=== PATIENT | male | born 1980 | race Caucasian/White ===

== ENCOUNTER 2019-06-29 11:01 | Inpatient (IN) | payer OTHER ==
[~2019-06-29] VITALS: Ht 172.7 cm; Wt 88.6 kg
[2019-06-29 11:01] VITALS: BP 122/75
[~2019-06-29 11:01] MED LIST: BACTROBAN2% T; CITALOPRAM20 MG PO; NEURONTIN PO; NEURONTIN300 MG PO; TRAZODO50 MG PO; VISTARIL50 MG PO
--- NOTE | 2019-06-29 12:14 | NUR ---
MULTIPLE ATTEMPTS AT IV START UNSUCCESSFUL BY MULTIPLE NURSES. DOC MADE AWARE.
[2019-06-29 12:20] LABS: BASO # 0.1 10*3/uL (0.0-0.1); BASO % 0.9 % (0.0-1.0); EOS # 0.4 10*3/uL (0.0-0.4); EOS % 2.8 % (1.0-4.0); HEMOGLOBIN 16.4 g/dl (14.0-18.0); LYMPH # 3.6 10*3/uL (1.3-4.4); LYMPH % 28.1 % (27.0-41.0); MEAN CORPUSCULAR HGB 28.9 pg (27.0-31.0); MEAN CORPUSCULAR HGB CONC 32.8 g/dl (33.0-37.0); MEAN PLATELET VOLUME 10.2 fl (9.6-12.3); MONO # 0.7 10*3/uL (0.1-1.0); MONO % 5.3 % (3.0-9.0); NEUT # 8.1 10*3/uL (2.3-7.9); NEUT % 62.7 % (47.0-73.0); PLATELET COUNT AUTOMATED 267 10*3/uL (130-400); RED BLOOD COUNT 5.68 10*6/uL (4.50-5.90); RED CELL DISTRI WIDTH 12.6 % (0-14.5); WHITE BLOOD COUNT 12.9 10*3/uL (4.8-10.8)
[2019-06-29 12:38] LABS: ALBUMIN 3.4 gm/dl (3.1-4.5); ALKALINE PHOSPHATASE 181 U/L (45-117); BUN 7 mg/dl (7-24); CHLORIDE 103 mmol/L (98-107); CREATININE 1.03 mg/dL (0.70-1.30); LIPASE 46 U/L (73-393); POTASSIUM 3.5 mmol/L (3.5-5.1); SGOT/AST 32 IU/L (3-35); SGPT/ALT 41 U/L (12-78); SODIUM 137 mmol/L (136-145); TOTAL PROTEIN 7.5 gm/dL (6.4-8.2)
[2019-06-29 12:41] LABS: ETHYL ALCOHOL < 3.0 mg/dl (<3)
[2019-06-29 12:50] LABS: BILIRUBIN NEGATIVE (NEGATIVE); BLOOD NEGATIVE (NEGATIVE); CLARITY SL CLOUDY (CLEAR); COLOR YELLOW (YELLOW); GLUCOSE NEGATIVE (NEGATIVE); KETONE NEGATIVE (NEGATIVE); LEUKO ESTERASE NEGATIVE (NEGATIVE); NITRITE NEGATIVE (NEGATIVE); UROBILINOGEN 0.2 E.U./dl (0.2-1.0)
--- NOTE | 2019-06-29 12:54 | NUR ---
NOTIFED BY LAB, PT LACTIC ACID OF 3.0, DR MCNAMARA AND SHANTANU RN NOTIFED.
[2019-06-29 12:56] VITALS: BP 112/81
[2019-06-29 13:03] LABS: URINE AMPHETAMINES < 1000 (1000ng/ml)
[2019-06-29 13:08] LABS: MUCOUS TRACE
[2019-06-29 13:09] LABS: URINE BARBITURATES > 200 (200ng/ml); URINE BENZODIAZEPINES > 200 (200ng/ml); URINE CANNABINOIDS (THC) > 50 (50ng/ml); URINE COCAINE < 300 (300ng/ml); URINE METHADONE < 300 (300ng/ml); URINE OPIATES > 300 (300ng/ml)
[2019-06-29 13:11] LABS: URINE PHENCYCLIDINE < 25 (25ng/ml)
--- NOTE | 2019-06-29 14:25 | NUR ---
FLUIDS AND ZOSYN STARTED PER DOC ORDERS. PT IS RESTING IN BED WITH MOTHER AT BEDSIDE. WILL CONTINUE TO MONITOR. VS STABLE.
--- NOTE | 2019-06-29 15:25 | NUR ---
MSTime: 1515 A 39 year old MALE admitted to under services of ERNESTINA BATISTA DO. Pt. arrived via ambulatory from ER. Chief complaint: OPIATE WITHDRAWAL. JOHN SWIFT.
[2019-06-29 16:00] VITALS: BP 123/77
--- NOTE | 2019-06-29 16:01 | NUR ---
PATIENT DENIES ANY HOME MEDICATIONS. PATIENT STATES HE DOES TAKE MEDICAL MARIJUANA.
--- NOTE | 2019-06-29 16:39 | NUR ---
ROUTINE SUBUTEX GIVEN AT THIS TIME. PATIENT ALSO GIVEN IV BENEDRYL, REQUIP AND ROBAXIN PER PRN ORDER FOR C/O ANXIETY, RESTLESS LEGS AND MUSCLE ACHES. WILL MONITOR EFFECTIVENESS.
--- NOTE | 2019-06-29 16:39 | NUR ---
PATIENT MEETS [facility]. PATIENT IS WANTING TO GO TO A [facility]INIC FOR HIS AFTERCARE PLAN. PATIENT WANTS TO FOLLOW UP WITH [facility] IN [place], [place]. YURI CHAPMAN B.A. COMPRESSOR ENGINEER
--- NOTE | 2019-06-29 18:14 | NUR ---
Patient resting. Responding to scheduled medications with fewer complaints of pain and anxiety.
[2019-06-29 20:00] VITALS: BP 114/57
--- NOTE | 2019-06-29 20:00 | NUR ---
Patient resting quietly with no c/o discomfort. Respirations easy and regular. Vital signs stable. No overt distress. MONICA HKALIL
--- NOTE | 2019-06-29 20:35 | NUR ---
PT COMPLAINS OF BACK PAIN 6/ PRN TYLENOL GIVEN
[2019-06-30] VITALS: BP 113/67
--- NOTE | 2019-06-30 00:54 | NUR ---
PRN ZOFRAN, ROBAXIN, BENADRYL, BENTYL GIVEN DUE TO PT COMPLAINING OF ABD PAIN, N/V, RESTLESS LEGS, ANXIETY
--- NOTE | 2019-06-30 01:54 | NUR ---
PT RESTING COMFORTABLY IN BED, NO COMPLAINTS AFTER PRN'S ADMINISTERED
--- NOTE | 2019-06-30 02:52 | NUR ---
24 HR CHART CHECK COMPLETE
--- NOTE | 2019-06-30 04:11 | NUR ---
PT ASLEEP IN BED. RESPIRATIONS EASY. NO S/S OF DISTRESS NOTED. WILL MONITOR. CALL LIGHT LEFT IN REACH.
[2019-06-30 08:00] VITALS: BP 122/75
--- NOTE | 2019-06-30 08:52 | NUR ---
PT SLEEPING. AROUSES EASILY. ROUTINE SUBUTEX GIVEN AT THIS TIME. NO VOICED COMPLAINTS. WILL MONITOR. VSS.
--- NOTE | 2019-06-30 10:18 | NUR ---
Patient displaying withdrawal symptoms, including: irritability, anxiousness, restlessness and agitation, complicated by impulsive behavior. Patient scores a 5 on the withdrawal scale. Scheduled/PRN medications provided, doctor notified of patient's agitation and AMA potential. Will continue to monitor medication effectiveness.
[2019-06-30 12:00] VITALS: BP 129/80
[2019-06-30 12:45] LABS: BASO # 0.1 10*3/uL (0.0-0.1); BASO % 0.6 % (0.0-1.0); EOS # 0.1 10*3/uL (0.0-0.4); EOS % 1.2 % (1.0-4.0); HEMOGLOBIN 16.9 g/dl (14.0-18.0); LYMPH % 17.4 % (27.0-41.0); MEAN CORPUSCULAR HGB 28.6 pg (27.0-31.0); MEAN CORPUSCULAR HGB CONC 32.5 g/dl (33.0-37.0); MEAN PLATELET VOLUME 10.5 fl (9.6-12.3); MONO # 0.4 10*3/uL (0.1-1.0); MONO % 3.6 % (3.0-9.0); NEUT % 76.9 % (47.0-73.0); PLATELET COUNT AUTOMATED 264 10*3/uL (130-400); RED BLOOD COUNT 5.91 10*6/uL (4.50-5.90); RED CELL DISTRI WIDTH 12.6 % (0-14.5); WHITE BLOOD COUNT 11.8 10*3/uL (4.8-10.8)
--- NOTE | 2019-06-30 12:56 | NUR ---
NOTIFIED REGARDING PATIENT C/O NAUSEA/VOMITING. ZOFRAN INEFFECTIVE AT THIS TIME.
[2019-06-30 13:10] LABS: BUN 3 mg/dl (7-24); CHLORIDE 108 mmol/L (98-107); CHOLESTEROL 142 mg/dL (<200); CREATININE 0.95 mg/dL (0.70-1.30); HDL CHOLESTEROL 25 mg/dl (40-60); LDL CHOLESTEROL 68 mg/dL (9-159); POTASSIUM 3.9 mmol/L (3.5-5.1); SODIUM 140 mmol/L (136-145); TRIGLYCERIDES 243 mg/dl (<150); VLDL CHOLESTEROL 49 mg/dL (6-40)
[2019-06-30 13:14] LABS: ACT PARTIAL THROMBO TIME 27.8 SECONDS (20.0-32.1)
[2019-06-30 13:16] LABS: THYROID STIM HORMONE (HS) 0.236 uIU/ml (0.358-4.75)
[2019-06-30 13:43] LABS: VITAMIN D, 25-HYDROXY 8.5 ng/mL (30-100)
--- NOTE | 2019-06-30 13:50 | NUR ---
1 TIME DOSE OF IV PHENERGAN GIVEN PER PRN ORDER FOR C/O NAUSEA/VOMITING. WILL MONITOR EFFECTIVENESS.
--- NOTE | 2019-06-30 14:30 | NUR ---
PHENERGAN EFFECTIVE. WILL CONTINUE TO MONITOR.
[2019-06-30 16:00] VITALS: BP 122/77
--- NOTE | 2019-06-30 17:07 | NUR ---
PT KEEP REMOVING HEART MONITOR
--- NOTE | 2019-06-30 17:39 | NUR ---
ASSUMED CARE OF PATIENT, PT SLEEPING. NO DISTRESS NOTED. PER PREVIOUS SHIFT STATED THAT PATIENT WOULD NOT PLACE TELE MONITOR BACK ON
--- NOTE | 2019-06-30 17:48 | NUR ---
DR. SABILLON AWARE THAT PATIENT WILL NOT KEEP TELEMETRY ON.
[2019-06-30 20:00] VITALS: BP 135/81
--- NOTE | 2019-06-30 20:00 | NUR ---
NOTIFIED BY GRAIN CLEANER AND TRANSFER OPERATOR THAT PATIENT WAS OFF THE MONITOR. UPON ATTEMPTING TO REPLACE LEADS PATIENT WAS NOT COOPERATIVE AND STATED "LEAVE ME ALONE I'M NOT CARING ABOUT THAT STUPID THING I JUST WANT SOMEONE TO MAKE ME FEEL BETTER" GRAIN CLEANER AND TRANSFER OPERATOR AWARE AND SO IS PHYSICIAN.
--- NOTE | 2019-06-30 21:50 | NUR ---
DR. CHAVEZ NOTIFIED AT THIS TIME OF PATIENT MULTIPLE EMESIS AND REQUEST FOR PHENERGAN INSTEAD OF ZOFRAN. ORDERS RECEIVED, SEE EMAR.
--- NOTE | 2019-06-30 22:30 | NUR ---
24 HOUR CHART CHECK COMPLETE
--- NOTE | 2019-06-30 23:45 | NUR ---
PATIENT HAD MULTIPLE COMPLAINTS AT THIS TIME, SEE EMAR FOR MEDICATION ADMINISTRATION.
[2019-07-01] VITALS: BP 124/72
[2019-07-01 08:00] VITALS: BP 126/72
--- NOTE | 2019-07-01 08:36 | NUR ---
Patient displaying withdrawal symptoms, including: irritability, anxiousness, restlessness and agitation Scheduled/PRN medications provided. SEE EMAR
[2019-07-01 12:00] VITALS: BP 125/79
--- NOTE | 2019-07-01 16:26 | NUR ---
PT LEFT AMA. IV SITE REMOVED, AMA PAPER SIGNED. DR JOHNSTON AND NURSING SUPERVISIOR MADE AWARE.
== END 2019-07-01 16:26 | disposition left against medical advice (07) | DRG 720 ==
LOC: ED 11:01 → EDHOLD 14:04 → 4E 14:04
PROVIDERS: Emergency Medicine; Internal Medicine; ADMIT Family Medicine
DX: A41.9 Sepsis, unspecified organism (principal); R65.20 Severe sepsis without septic shock; L03.114 Cellulitis of left upper limb; L03.113 Cellulitis of right upper limb; L03.115 Cellulitis of right lower limb; L02.415 Cutaneous abscess of right lower limb; F11.29 Opioid dependence with unspecified opioid-induced disorder; R73.9 Hyperglycemia, unspecified; F41.9 Anxiety disorder, unspecified; G47.00 Insomnia, unspecified; E44.1 Mild protein-calorie malnutrition; F13.10 Sedative, hypnotic or anxiolytic abuse, uncomplicated; F31.9 Bipolar disorder, unspecified; F20.9 Schizophrenia, unspecified; Z68.29 Body mass index [BMI] 29.0-29.9, adult; Z89.029 Acquired absence of unspecified finger(s); Z81.1 Family history of alcohol abuse and dependence